=== PATIENT | female | born 1975 | race American Indian/Alaskan Native ===

== ENCOUNTER 2018-04-04 10:55 | Day surgery (SDC) | payer OTHER ==
[2018-04-03 06:43] VITALS: BMI 34.8
[2018-04-04 12:11] LABS: BASO % 0.4 % (0.0-2.0); EOS # 0.1 K/uL (0.0-0.7); EOS % 1.5 % (0.0-4.0); HEMOGLOBIN 11.8 g/dL (12.0-16.0); LYMPH # 1.7 K/uL (1.0-4.3); LYMPH % 50.4 % (20.0-40.0); MEAN CELL VOLUME 86.2 fl (81.0-99.0); MEAN CORPUSCULAR HGB CONC 33.6 g/dL (33.0-37.0); MEAN PLATELET VOLUME 8.3 fl (7.2-11.7); MONO # 0.2 K/uL (0.0-0.8); MONO % 4.6 % (0.0-10.0); NEUT # 1.5 K/uL (1.8-7.0); NEUT % 43.1 % (50.0-75.0); NRBC % 0.1 % (0.0-0.0); RBC 4.09 Mil/uL (3.80-5.20); WHITE BLOOD COUNT 3.4 K/uL (4.8-10.8)
[2018-04-04 12:17] VITALS: RESP 18
[2018-04-04 12:22] LABS: ALB/GLOB RATIO 1.2 (1.0-2.1); ALBUMIN 4.2 g/dL (3.5-5.0); ALT/SGPT 13 U/L (9-52); AST/SGOT 18 U/L (14-36); BLOOD UREA NITROGEN 14 mg/dl (7-17); CALCIUM 8.9 mg/dL (8.4-10.2); GFR NON-AFRICAN AMERICAN > 60
[2018-04-04] MEDS ORDERED: Midazolam 2 MG/2 ML VIAL ONE (12:41)
[2018-04-04] MEDS ORDERED: Dexamethasone 4 mg/1 ml ONE (12:41)
[2018-04-04] MEDS ORDERED: Lidocaine 1% 5ml Abboject ONE (12:41)
[2018-04-04] MEDS ORDERED: Propofol 10 mg/ml Inj (20 ML) ONE (12:41)
[2018-04-04] MEDS ORDERED: Lactated Ringer's 1,000 ML IV ONE (13:19)
[2018-04-04] MEDS ORDERED: HYDROmorphone 0.5 mg/0.5 ml ISec IVP PRN (13:42)
[2018-04-04] MEDS ORDERED: Lactated Ringer's 1,000 ML IV SCH (13:45)
[2018-04-04 15:24] VITALS: BP 121/83; PULSE 86; TEMP 98.7; O2SAT 99
--- NOTE | 2018-04-10 04:31 | OP ---
PROCEDURE DATE: 04/04/2018 PREOPERATIVE DIAGNOSIS: Abnormal uterine bleeding. POSTOPERATIVE DIAGNOSIS: Abnormal uterine bleeding. PROCEDURE: Hysteroscopy and dilatation and curettage. SURGEON: Isaak Gant MD TYPE OF ANESTHESIA: General anesthesia. ANESTHESIA ADMINISTERED BY: Dr. Garcia. DESCRIPTION OF PROCEDURE: With the patient in the dorsal lithotomy position and under general anesthesia, the patient was prepped and draped in usual sterile manner. A straight catheter was used to empty the bladder after which the uterus was grasped anteriorly and dilated with graded dilators. Following this, the hysteroscope was placed into the uterine cavity and moderate to large amount of hypoplastic tissue was observed. After this was done, the dilatation and curettage was done to remove most of the tissue. Bleeding was minimal. The patient tolerated the procedure well and was in satisfactory condition on the way to the recovery room. Isaak Gant MD
== END 2018-04-04 15:29 | disposition home or self-care (01) ==
LOC: H.OPSURG 10:55
PROVIDERS: ATTEND Specialist
DX: N93.9 Abnormal uterine and vaginal bleeding, unspecified (principal); D25.2 Subserosal leiomyoma of uterus; M19.90 Unspecified osteoarthritis, unspecified site; E78.5 Hyperlipidemia, unspecified; I10 Essential (primary) hypertension; D64.9 Anemia, unspecified
CPT/HCPCS: 36415; 58558; 80053; 85025; 88305; J1100; J2250; J2405; J2704; J2765; J3010; J7030; J7120